=== PATIENT | male | born 1965 | race American Indian/Alaskan Native ===

== ENCOUNTER 2019-04-03 22:09 | Observation (INO) | payer OTHER ==
[2019-04-03] MEDS ORDERED: ASPIRIN 325 MG TAB PO ONE (22:40)
[2019-04-03 23:35] LABS: Eosinophils # (Auto) 0.1 K/mm3 (0.0-0.4); Eosinophils % (Auto) 2.4 % (0.0-4.3); Hematocrit 35.5 % (35.5-45.6); Hemoglobin 11.9 gm/dl (11.8-15.2); Lymphocytes # (Auto) 1.6 K/mm3 (1.2-5.4); Lymphocytes % (Auto) 40.8 % (13.4-35.0); Mean Corpuscular HGB Conc 34 % (32-34); Mean Corpuscular Volume 85 fl (84-94); Monocytes # (Auto) 0.5 K/mm3 (0.0-0.8); Monocytes % (Auto) 12.7 % (0.0-7.3); Platelet Count 255 K/mm3 (140-440); Red Blood Count 4.17 M/mm3 (3.65-5.03); Red Cell Distribution Width 13.4 % (13.2-15.2)
[2019-04-04 00:01] LABS: BUN/Creatinine Ratio 14; Blood Urea Nitrogen 13 mg/dL (9-20); Calcium 9.2 mg/dL (8.4-10.2); Hemolysis Index 28
--- NOTE | 2019-04-04 00:14 | XRay Report ---
CHEST 1 VIEW 11:18 PM INDICATION / CLINICAL INFORMATION: Chest Pain. COMPARISON: None available. FINDINGS: SUPPORT DEVICES: None. HEART / MEDIASTINUM: The heart size and pulmonary vasculature are normal. The aorta is normal in ming miky. LUNGS / PLEURA: No significant pulmonary or pleural abnormality. No pneumothorax. ADDITIONAL FINDINGS: No significant additional findings. IMPRESSION: No acute findings. Signer Name: Iron Borden MD Signed: 04/04/2019 12:10 AM Workstation Name: [id number]
--- NOTE | 2019-04-04 10:55 | Emergency Department Report ---
ED Chest Pain HPI - General Chief Complaint: Chest Pain Stated Complaint: CHEST PAIN, SOB, NUMBNESS TO LEFT ARM, RAPID HEART Time Seen by Provider: 04/04/19 10:53 Source: patient Mode of arrival: Ambulatory Limitations: No Limitations - History of Present Illness Initial Comments: This is a 54-year-old man who presents for evaluation of chest pain. He states been going on intermittently for 2 weeks. The episodes usually last about 15 minutes. He has had dyspnea on exertion during this period. States the pain is somewhat like burning but unrelieved by his prescription painter reflux medicine. He does refer tingling in his left arm and radiation of pain. Pain is nonpleuritic. He has not been coughing at all. He said no recent travel. He denies leg pain or swelling. He denies family history of coronary artery disease. He's had no prior workup. He does not smoke. He denies history of lipids but states he takes medicine for hypertension. MD Complaint: chest pain -: Gradual, week(s) Onset: during rest, during exertion Pain Location: substernal Pain Radiation: LUE Severity: moderate Quality: other (burning) Consistency: now resolved Improves With: nothing Worsens With: nothing re: dyspnea Other Symptoms: denies: cough, fever, syncope Treatments Prior to Arrival: none Aspirin use within the Past 7 Days: (0) No - Related Data Allergies Allergy/AdvReac Type Severity Reaction Status Date / Time No Known Allergies Allergy Verified 04/04/19 09:41 Heart Score - HEART Score History: Moderately suspicious EKG: Normal Age: 45-65 Risk factors: 1-2 risk factors Troponin: < normal limit HEART Score: 3 - Critical Actions Critical Actions: 0-3 pts:0.9-1.7%risk of adverse cardiac event.Candidate for discharge ED Review of Systems ROS: Stated complaint: CHEST PAIN, SOB, NUMBNESS TO LEFT ARM, RAPID HEART Other details as noted in HPI Constitutional: denies: chills, fever Eyes: denies: eye pain, eye discharge, vision change ENT: denies: ear pain, throat pain Respiratory: SOB with exertion. denies: cough, shortness of breath, wheezing Cardiovascular: as per HPI, chest pain. denies: palpitations Endocrine: no symptoms reported Gastrointestinal: denies: abdominal pain, nausea, diarrhea Genitourinary: denies: urgency, dysuria Musculoskeletal: denies: back pain, joint swelling, arthralgia Skin: denies: rash, lesions Neurological: denies: headache, weakness, paresthesias Psychiatric: denies: anxiety, depression Hematological/Lymphatic: denies: easy bleeding, easy bruising ED Past Medical Hx - Past Medical History Previous Medical History?: Yes Hx Hypertension: Yes Hx GERD: Yes - Surgical History Past Surgical History?: No - Family History Family history: no significant - Social History Smoking Status: Never Smoker Substance Use Type: None ED Physical Exam - General Limitations: No Limitations General appearance: alert, in no apparent distress - Head Head exam: Present: atraumatic, normocephalic - Eye Eye exam: Present: normal appearance. Absent: scleral icterus - ENT ENT exam: Present: mucous membranes moist - Neck Neck exam: Present: normal inspection. Absent: tenderness, meningismus - Respiratory Respiratory exam: Present: normal lung sounds bilaterally. Absent: respiratory distress - Cardiovascular Cardiovascular Exam: Present: regular rate, normal rhythm. Absent: systolic murmur, diastolic murmur, rubs, gallop - GI/Abdominal GI/Abdominal exam: Present: soft, normal bowel sounds. Absent: distended, tenderness, guarding, rebound, rigid - Rectal Rectal exam: Present: deferred - Extremities Exam Extremities exam: Present: normal inspection, normal capillary refill. Absent: pedal edema, joint swelling, calf tenderness - Back Exam Back exam: Present: normal inspection - Neurological Exam Neurological exam: Present: alert, oriented X3, CN II-XII intact. Absent: motor sensory deficit - Psychiatric Psychiatric exam: Present: normal affect, normal mood - Skin Skin exam: Present: warm, dry, intact, normal color. Absent: rash ED Course Vital Signs 04/03/19 04/04/19 04/04/19 22:24 10:58 11:00 Temperature 98.3 F Pulse Rate 68 61 Respiratory 18 18 Rate Blood Pressure 105/71 150/91 O2 Sat by Pulse 97 99 99 Oximetry - Reevaluation(s) Reevaluation #1: 03/24 54-year-old man with chest pain which is somewhat nonreassuring. I've explained to him that admission is warranted. I have explained to him that the risks of undiagnosed and symptomatic coronary artery disease to include as well as disability. He is aware that he may have a heart attack in the interim pending further evaluation. Patient states that he does not want to be admitted to the hospital and has to go to work tomorrow. He will sign out AGAINST MEDICAL ADVICE. He will be referred to a marketing/sales person. He states that he does have a primary care physician. He is told to take aspirin. 05/13 11:09 FAITH score - Faith Score Age > 65: (0) No Aspirin use within the Past 7 Days: (0) No 3 or more CAD Risk Factors: (0) No 2 or more Angina events in past 24 hrs: (0) No Known CAD with more than 50% Stenosis: (0) No Elevated Cardiac Markers: (0) No ST Deviation Greater than 0.5mm: (0) No FAITH Score: 0 ED Medical Decision Making - Lab Data Result diagrams: 04/03/19 23:03 04/03/19 23:03 Laboratory Results - last 24 hr 04/03/19 04/03/19 04/04/19 23:03 23:03 01:46 WBC 4.0 L RBC 4.17 Hgb 11.9 Hct 35.5 MCV 85 MCH 29 MCHC 34 RDW 13.4 Plt Count 255 Lymph % (Auto) 40.8 H [place] % (Auto) 12.7 H Eos % (Auto) 2.4 Baso % (Auto) 1.0 Lymph # 1.6 [place] # 0.5 Eos # 0.1 Baso # 0.0 Seg Neutrophils % 43.1 Seg Neutrophils # 1.7 L Sodium 138 Potassium 3.9 Chloride 100.1 Carbon Dioxide 25 Anion Gap 17 BUN 13 Creatinine 0.9 Estimated GFR > 60 BUN/Creatinine Ratio 14 Glucose 101 H Calcium 9.2 Troponin T < 0.010 < 0.010 04/04/19 04:52 WBC RBC Hgb Hct MCV MCH MCHC RDW Plt Count Lymph % (Auto) [place] % (Auto) Eos % (Auto) Baso % (Auto) Lymph # [place] # Eos # Baso # Seg Neutrophils % Seg Neutrophils # Sodium Potassium Chloride Carbon Dioxide Anion Gap BUN Creatinine Estimated GFR BUN/Creatinine Ratio Glucose Calcium Troponin T < 0.010 - EKG Data -: EKG Interpreted by Me EKG shows normal: sinus rhythm, axis, intervals, QRS complexes, ST-T waves Rate: normal - EKG Data Interpretation: no acute changes Critical care attestation.: If time is entered above; I have spent that time in minutes in the direct care of this critically ill patient, excluding procedure time. ED Disposition Clinical Impression: Chest pain Qualifiers: Chest pain type: unspecified Qualified Code(s): R07.9 - Chest pain, unspecified Disposition: OP ADMIT IP TO THIS HOSP Is pt being admited?: Yes Does the pt Need Aspirin: Yes Condition: Stable Instructions: Chest Pain (ED) Additional Instructions: Reevaluation with marketing/sales person as recommended. Admission to the hospital was recommended. Return as desired for further consideration for admission. Referrals: PRIMARY CARE, [Primary Care Provider] - 3-5 Days Forms: AMA Form Time of Disposition: 11:11
[2019-04-04] MEDS ORDERED: oxyCODONE /ACETAMINOPHEN 5-325MG TAB PO PRN (12:45)
[2019-04-04] MEDS ORDERED: ACETAMINOPHEN 325 MG TAB PO PRN (12:45)
[2019-04-04] MEDS ORDERED: NITROGLYCERIN 0.4 MG TAB SUBL SL PRN (12:48)
--- NOTE | 2019-04-04 12:53 | History and Physical Report ---
History of Present Illness Date of examination: 04/04/19 Date of admission: 04/04/19 11:59 Chief complaint: Chest pain History of present illness: This is a 54-year-old man without any prior medical problem presented to the ER with complaints of chest pain. He states that he has been experiencing chest pain intermittently for 2 weeks. The episodes usually last about 15 minutes, and comes with exertional work and radiates towards his left arm. He also exper iences dyspnea during this period. States the pain is somewhat like burning but unrelieved by his prescription acid reflux medicine. He denies family history of coronary artery disease. He denies smoking. He states that he was told that he has high blood pressure but he's not been on any medications. Cardiac enzymes in the ER has been negative, chest x-ray has no infiltrates. Patient will be admitted for further evaluation and management for his chest pain.. Review of System: Constitutional: no fever, no chills, no weight loss Ears, eyes, nose, mouth and throat: no nasal congestion, no nasal discharge, no sinus pressure, no vision change, no red eye. Neck: No neck pain or rigidity. Cardiovascular: + chest pain, no orthopnea, no palpitations, no leg swelling Respiratory: No shortness of breath, no cough, no congestion, no wheezing Gastrointestinal: no abdominal pain, no nausea, no vomiting Genitourinary : no dysuria, no hematuria Musculoskeletal: no joint swelling or muscle ache Integumentary: no rash, no pruritis Neurological: no parathesias, no numbness, no tingling Endocrine: no cold or heat intolerance, no polyuria or polydipsia Hematologic/Lymphatic: no easy bruising, no easy bleeding, no gland swelling Allergic/Immunologic: no urticaria, no angioedema. Past History Past Medical History: hypertension Past Surgical History: No surgical history Social history: no significant social history. denies: smoking, alcohol abuse, prescription drug abuse Family history: diabetes, hypertension Medications and Allergies Allergies Allergy/AdvReac Type Severity Reaction Status Date / Time No Known Allergies Allergy Verified 04/04/19 09:41 Active Meds: Active Medications Acetaminophen (Tylenol) 650 mg PO Q4H PRN PRN Reason: Pain MILD(1-3)/Fever >100.5/SUBRAMANIAN Aspirin (Aspirin) 325 mg PO QDAY FRANK Atorvastatin Calcium (Lipitor) 40 mg PO QHS FRANK Docusate Sodium (Colace) 100 mg PO BID FRANK Famotidine (Pepcid) 10 mg PO BID FRANK Nitroglycerin (Nitrostat) 0.4 mg SL Q5M PRN PRN Reason: Chest Pain Oxycodone/Acetaminophen (Percocet 5/325) 1 tab PO Q6H PRN PRN Reason: Pain, Moderate (4-6) Sodium Chloride (Sodium Chloride Flush Syringe 10 Ml) 10 ml IV PRN PRN PRN Reason: LINE FLUSH Exam - Physical Exam Narrative exam: GENERAL: well-developed and well-nourished lying on bed appeared to be in no discomfort. HEENT: Normocephalic. Atraumatic. No conjunctival congestion or icterus. Patient has moist mucous membranes. NECK: Supple. Trachea midline. CHEST/LUNGS: Clear to auscultated bilaterally, breathing nonlabored. No wheezes crackles or rhonchi. HEART/CARDIOVASCULAR: Regular in rate and rhythm. S1 and S2 positive. ABDOMEN: Abdomen is soft, nontender. Patient has normal bowel sounds. SKIN: There is no rash. Warm and dry. NEURO: No focal motor deficit. Follows command. MUSCULOSKELETAL: No joint effusion or tenderness. EXTRIMITY: No edema, no cyanosis or clubbing. PSYCH: Cooperative. - Constitutional Vitals: Temp Pulse Resp BP Pulse Ox 98.3 F 64 10 L 141/88 100 04/03/19 22:24 04/04/19 12:21 04/04/19 12:21 04/04/19 12:21 04/04/19 12:21 Results - Labs CBC & Chem 7: 04/04/19 13:44 04/04/19 13:44 Labs: Abnormal lab results 04/03/19 04/03/19 Range/Units 23:03 23:03 WBC 4.0 L (4.5-11.0) K/mm3 Lymph % (Auto) 40.8 H (13.4-35.0) % [place] % (Auto) 12.7 H (0.0-7.3) % Seg Neutrophils # 1.7 L (1.8-7.7) K/mm3 Glucose 101 H (75-100) mg/dL - Imaging and Cardiology Chest x-ray: report reviewed (no infiltrates) Assessment and Plan Acute exertional chest pain - - will admit to telemetry bed - monitor with serial CE and EKG - will place on Aspirin, statin - as needed SL NTG and iv morphin for pain - order 2D echo and stress test in the am - cardiac diet now, NPO after midnight Hypertension, - - Monitor BP, add betablocker and ACEI if BP tolerates - provide DVT Px with lovenox
[2019-04-04] MEDS: LISINOPRIL 10 MG TAB PO SCH (13:33)
[2019-04-04 14:24] LABS: Basophils % (Auto) 0.6 % (0.0-1.8); Hematocrit 38.6 % (35.5-45.6); Hemoglobin 12.9 gm/dl (11.8-15.2); Lymphocytes % (Auto) 27.3 % (13.4-35.0); Mean Corpuscular HGB Conc 33 % (32-34); Mean Corpuscular Volume 85 fl (84-94); Monocytes # (Auto) 0.4 K/mm3 (0.0-0.8); Monocytes % (Auto) 11.2 % (0.0-7.3); Platelet Count 250 K/mm3 (140-440); Red Blood Count 4.52 M/mm3 (3.65-5.03); Red Cell Distribution Width 13.5 % (13.2-15.2)
[2019-04-04 14:40] LABS: BUN/Creatinine Ratio 14; Blood Urea Nitrogen 11 mg/dL (9-20); Calcium 9.9 mg/dL (8.4-10.2); Hemolysis Index 11
[2019-04-04] MEDS: DOCUSATE SODIUM 100 MG CAP PO SCH (22:00)
[2019-04-04] MEDS: FAMOTIDINE 10 MG TAB PO SCH (23:25)
[2019-04-05] MEDS ORDERED: REGADENOSON 0.4 MG/5 ML INJ IV ONE (09:58)
[2019-04-05] MEDS ORDERED: ASPIRIN 325 MG TAB PO SCH (10:00)
--- NOTE | 2019-04-05 11:40 | Event Note ---
full consult dictated
[2019-04-05] MEDS ORDERED: FLU VACC QUAD 2019-20 (3 YR UP)/PF 60 MCG/0.5 ML SYRINGE IM ONE (12:00)
[2019-04-05] MEDS: DOCUSATE SODIUM 100 MG CAP PO SCH (13:16)
[2019-04-05] MEDS: FAMOTIDINE 10 MG TAB PO SCH (13:18)
--- NOTE | 2019-04-05 13:21 | Event Note ---
Date: 04/05/19 S/p lexiscan MPI stress test this AM which was negative. TTE reviewed with no significant abnormalities. Currently stable cardiac status. Pt may discharge from cardiology standpoint. Recommend follow up in our office with Dr. Matheus Waldrop within 1-2 weeks ([phone]). Fer MCKENNA NP / DR. Matheus WALDROP
[2019-04-05 13:27] VITALS: BP 107/78
[2019-04-05] MEDS: LISINOPRIL 10 MG TAB PO SCH (13:27)
--- NOTE | 2019-04-05 15:27 | Discharge Summary ---
Providers - Providers Date of Admission: 04/04/19 11:59 Date of discharge: 04/05/19 Attending physician: STANISLAV PA 04/04/19 Consult to Cardiac Rehabilitation [CONS] Routine Reason For Exam: Phase I 04/04/19 12:48 Consult to Cardiology [CONS] Routine Consulting Provider: ANDREW ADAMES Reason For Exam: chest pain Primary care physician: TRIMMER OPERATOR Hospitalization Condition: Stable Pertinent studies: Chest x-ray Stress test Hospital course: This is a 54-year-old man without any prior medical problem presented to the ER with complaints of chest pain. Patient was admitted to the telemetry, monitored with the serial cardiac enzymes and EKG. His chest x-ray showed no infiltrates, cardiac enzymes were normal. Cardiology was consulted and he was further evaluated by stress test which was normal. Patient was then discharged home in stable condition with outpatient follow-up. Discharge diagnosis: Acute atypical chest pain, likely GERD Hypertension, -added lisinopril Disposition: TO HOME OR SELFCARE Time spent for discharge: 34 minutes Core Measure Documentation - Palliative Care Palliative Care/ Comfort Measures: Not Applicable - Core Measures Any of the following diagnoses?: none Exam - Physical Exam Narrative exam: GENERAL: well-developed and well-nourished -[place] male lying on bed appeared to be in no discomfort. HEENT: Normocephalic. Atraumatic. No conjunctival congestion or icterus. Patient has moist mucous membranes. NECK: Supple. Trachea midline. CHEST/LUNGS: Clear to auscultated bilaterally, breathing nonlabored. No wheezes crackles or rhonchi. HEART/CARDIOVASCULAR: Regular in rate and rhythm. S1 and S2 positive. ABDOMEN: Abdomen is soft, nontender. Patient has normal bowel sounds. SKIN: There is no rash. Warm and dry. NEURO: No focal motor deficit. Follows command. MUSCULOSKELETAL: No joint effusion or tenderness. EXTRIMITY: No edema, no cyanosis or clubbing. PSYCH: Cooperative. - Constitutional Vitals: Temp Pulse Resp BP Pulse Ox 98.3 F 77 18 107/78 99 04/05/19 08:40 04/05/19 13:27 04/05/19 08:40 04/05/19 13:27 04/05/19 08:40 Plan Activity: advance as tolerated Weight Bearing Status: Weight Bear as Tolerated Diet: low fat, low salt Follow up with: PRIMARY CARE, [Primary Care Provider] - 3-5 Days Prescriptions: Pantoprazole [Protonix] 40 mg PO QDAY #30 tablet
--- NOTE | 2019-04-05 23:29 | Consultation ---
CARDIOLOGY CONSULTATION REFERRING PHYSICIAN: Hospitalist service. REASON FOR CONSULTATION: Advice and opinion regarding chest pain. HISTORY OF PRESENT ILLNESS: The patient is a pleasant 54-year-old -[place] gentleman with a history of hypertension, who presents here with an episode of chest pain Friday night. He describes it as sharp and tight lasted approximately 10-15 minutes. No alleviating or exacerbating factors. He is seen in the stress lab this morning. No further chest pain since index episode. No further chest pain, shortness of breath, syncope or presyncope. No palpitations. No dizziness or diaphoresis. No abdominal pain, no recent weight loss. No hematemesis or hematochezia. PAST MEDICAL HISTORY: Hypertension. SOCIAL HISTORY: Nonsmoker, nondrinker. FAMILY HISTORY: Diabetes and hypertension. ALLERGIES: No known drug, food or environmental allergies. MEDICATIONS: Inpatient and outpatient medications reviewed. REVIEW OF SYSTEMS: As aforementioned. PHYSICAL EXAMINATION: VITAL SIGNS: Blood pressure is 119/79. He is afebrile. Tele reveals sinus rhythm, no dysrhythmias. O2 sats 99% on room air. HEENT: Sclerae anicteric. PERRLA. NECK: Supple. No mass or JVD. CHEST: Clear to auscultation bilaterally. Good air movement. CARDIOVASCULAR: Regular rhythm, S1, S2. ABDOMEN: Soft, nontender, nondistended. Normoactive bowel sounds in all 4 quadrants. No mass or bruits. EXTREMITIES: No cyanosis, clubbing, edema. Good peripheral pulses. SKIN: Warm and intact. No rashes. LABORATORY DATA: Troponin negative x 2. CBC is unremarkable. BMP is unremarkable. EKG shows sinus rhythm, no acute ST segment shift. Chest x-ray shows no acute bony or parenchymal abnormality. ASSESSMENT AND PLAN: In summary, the patient is a pleasant 54-year-old -[place] gentleman: 1. Chest pain with atypical features. No acute ST segment shift on EKG. Troponin negative x 2 and no further chest pain episodes. Risk factors as aforementioned. Nuclear stress test pending this morning. Risk factor modification discussed. Follow up once the tests are complete. Thank you for this consultation would be happy following with you. JOB# [id number] SBM/NTS
--- NOTE | 2019-04-06 00:10 | Treadmill Report ---
NUCLEAR PERFUSION SCAN REFERRING PHYSICIAN: Dr. Guevara. PROTOCOL: The patient was brought to the stress lab in a postabsorptive state, given 10 mCi of technetium 99m at rest. The patient underwent rest imaging. The patient underwent Lexiscan stress test per standard protocol. At peak stress, the patient was 26 mCi of technetium 99m. Shortly thereafter, the patient underwent stress imaging. Raw imaging reveals mild GI artifact, no significant motion artifact. SPECT imaging examined carefully in the horizontal long axis, vertical long axis, short axis. There was no evidence of significant fixed or reversible perfusion defects suggestive of prior infarction or ischemia. Gated wall motion reveals normal systolic thickening, calculated ejection fraction of 54%. No TID. CONCLUSIONS: 1. Normal myocardial perfusion scan without evidence of active ischemia or prior infarction. 2. Normal left ventricular systolic performance without evidence of transient ischemic dilatation and stress-induced segmental wall motion abnormalities. JOB# [id number] RADAMES/JUAN
== END 2019-04-05 18:00 | disposition home or self-care (01) ==
LOC: ED 22:09 → 4A 04-04 11:59
PROVIDERS: ADMIT Internal Medicine; ATTEND Internal Medicine
DX: R07.89 Other chest pain (principal); I10 Essential (primary) hypertension; K21.9 Gastro-esophageal reflux disease without esophagitis; Z79.82 Long term (current) use of aspirin; Z79.899 Other long term (current) drug therapy; Z23 Encounter for immunization
CPT/HCPCS: 36415; 71045; 78452; 80048; 84484; 85025; 90686; 93005; 93010; 93017; 93306; 99284; A9270; A9502; G0008; G0378; J2785; 90471